=== PATIENT | female | born 1970 | race Caucasian/White ===

== ENCOUNTER 2018-09-22 12:31 | Emergency (ER) | payer SELFPAY, MEDICAID ==
[2018-09-22 13:40] LABS: ADD MAN DIFF? NO
[2018-09-22 13:44] LABS: WHITE BLOOD COUNT 6.4 10^3/ul (4.8-10.8)
[2018-09-22 13:44] LABS: BASOPHILS % 0.5 % (0.0-2.0); EOSINOPHILS # 0.1 10^3/ul (0.0-0.5); EOSINOPHILS % 1.4 % (0.0-7.0); HEMOGLOBIN 8.7 g/dl (12.0-16.0); LYMPHOCYTES # 1.6 10^3/ul (0.8-2.9); LYMPHOCYTES % 25.2 % (15.0-51.0); MEAN CORPUSCULAR HEMOGLOBIN 19.8 pg (29.0-33.0); MEAN CORPUSCULAR VOLUME 68.3 fl (82.0-101.0); MEAN PLATELET VOLUME 10.3 fl (7.4-10.4); MONOCYTE # 0.5 10^3/ul (0.3-0.9); MONOCYTES % 7.7 % (0.0-11.0); NEUTROPHIL # 4.2 10^3/ul (1.6-7.5); PLATELET COUNT 325 10^3/UL (140-415); RED BLOOD COUNT 4.39 10^6/ul (4.20-5.40); RED CELL DISTRIBUTION WIDTH 17.5 % (11.5-14.5)
[2018-09-22] MEDS: ONDANSETRON 4 MG INJ IV (13:45)
[2018-09-22] MEDS: SOD CHLORIDE 0.9% 1,000 ML IV (13:45)
[2018-09-22] MEDS: morphine 4 MG/ML VIAL IV (13:54)
[2018-09-22] MEDS: KETOROLAC 30 MG INJ IV (13:54)
[2018-09-22 14:04] LABS: ANION GAP 8 (5-13); BLOOD UREA NITROGEN 15 mg/dl (7-20); CALCIUM 9.3 mg/dl (8.4-10.2); CARBON DIOXIDE 26 mmol/L (21-31); CHLORIDE 107 mmol/L (97-110); CREATININE 0.76 mg/dl (0.44-1.00); Estimated GFR > 60 mL/min (>60); GLUCOSE 99 mg/dl (70-220); SODIUM 141 mmol/L (135-144)
== END 2018-09-22 17:30 | disposition home or self-care (01) ==
LOC: E/R 12:31
DX: N94.6 Dysmenorrhea, unspecified (principal); N92.4 Excessive bleeding in the premenopausal period; R10.2 Pelvic and perineal pain
CPT/HCPCS: 36415; 74176; 76856; 80048; 81025; 85025; 96374; 96375; 99285-25